=== PATIENT | male | born 1980 | race Caucasian/White ===

== ENCOUNTER 2016-09-09 14:06 | Emergency (ER) | payer MEDICAID ==
[2016-09-09 14:30] VITALS: RESP 18; TEMP 98.7
--- NOTE | 2016-09-09 14:44 | C.PDOC ---
History Of Present Illness 36 y/o male presents to ED with complaints of right knee pain. Pt states he fell while at work landing on right knee. Pt states it is painful to walk. Denies LOC, weakness, numbness or any other complaints. Chief Complaint (Nursing): Lower Extremity Problem/Injury History Per: Patient History/Exam Limitations: no limitations Onset/Duration Of Symptoms: Hrs Current Symptoms Are (Timing): Still Present Severity: Mild Recent travel outside of the [place]: No - Knee Description Of Injury: Fell Past Medical History Reviewed: Historical Data, Nursing Documentation, Vital Signs Vital Signs: Last Vital Signs Temp 98.7 F 09/09/16 14:27 Pulse 89 09/09/16 14:27 Resp 18 09/09/16 14:27 BP 122/79 09/09/16 14:27 Pulse Ox 98 09/09/16 14:46 Surgical History: Tonsillectomy Family History: States: Unknown Family Hx - Social History Hx Alcohol Use: No Hx Substance Use: No - Immunization History Hx Tetanus Toxoid Vaccination: No Hx Influenza Vaccination: No Hx Pneumococcal Vaccination: No Review Of Systems Musculoskeletal: Positive for: Other (right knee pain) Neurological: Negative for: Weakness, Numbness Physical Exam - Physical Exam Appears: Non-toxic, No Acute Distress Skin: Warm, Dry, No Rash Extremity: Normal ROM (painful ROM right knee), Tenderness (distal to right patella), No Calf Tenderness, Capillary Refill (<2 seconds), No Deformity, Swelling (right knee) Pulses: Right Dorsalis Pedis: Normal Neurological/Psych: Oriented x3, Normal Speech, Normal Motor, Normal Sensation ED Course And Treatment O2 Sat by Pulse Oximetry: 98 (room air) Pulse Ox Interpretation: Normal Medical Decision Making Medical Decision Making: t with mild relief of pain after ibupforen, no fx seen on xray. +effusion. d/ c with gilbert bandage, nsaids f/u ortho and pmd Disposition Counseled Patient/Family Regarding: Studies Performed, Diagnosis, Need For Followup, Rx Given - Disposition Referrals: Kai Luo III, MD [Staff Provider] - Disposition: HOME/ ROUTINE Disposition Time: 15:42 Condition: STABLE Additional Instructions: Wear Gilbert bandage during the daytime only. Take ibuprofen as directed for pain. Take with food. Follow up with your doctor and with Dr Luo (orthopedist). Apply cold compresses to knee 3-4 times per day. Prescriptions: Ibuprofen [Motrin] 600 mg PO TID #30 tab Instructions: Swollen Knee Joint (ED) Forms: General Discharge Instructions - Clinical Impression Clinical Impression: Effusion of knee joint right, Right knee injury - PA / OBSTETRICS/GYNECOLOGY NURSE / Resident Statement MD/DO has reviewed & agrees with the documentation as recorded. - Scribe Statement The provider has reviewed the documentation as recorded by the Scribe Jean Mckeon All medical record entries made by the Corinneibbernard were at my direction and personally dictated by me. I have reviewed the chart and agree that the record accurately reflects my personal performance of the history, physical exam, medical decision making, and the department course for this patient. I have also personally directed, reviewed, and agree with the discharge instructions and disposition.
--- NOTE | 2016-09-09 15:00 | RAD ---
PROCEDURE: Right Knee Radiographs. HISTORY: COMPARISON: None available. FINDINGS: BONES: No acute displaced fracture. JOINTS: No dislocation. JOINT EFFUSION: Moderate suprapatellar joint effusion. OTHER FINDINGS: None. IMPRESSION: Moderate suprapatellar joint effusion. No acute displaced fracture or dislocation identified. If symptoms persist or if there is continued clinical concern, x-ray follow-up in 7-10 days should be considered.
[2016-09-09 15:54] VITALS: BP 118/72; PULSE 75
[2016-09-11 07:08] VITALS: O2SAT 98
== END 2016-09-09 15:53 | disposition home or self-care (01) ==
LOC: C.ER 14:06
DX: S89.91XA Unspecified injury of right lower leg, initial encounter (principal); M25.461 Effusion, right knee; W19.XXXA Unspecified fall, initial encounter; Y93.89 Activity, other specified; Y92.89 Other specified places as the place of occurrence of the external cause